=== PATIENT | female | born 1985 | race Caucasian/White ===

== ENCOUNTER 2020-02-16 18:00 | Inpatient (IN) | payer MEDICAID, SELFPAY ==
[2020-02-16] VITALS (14 sets, daily range): BP systolic 0–153; BP diastolic 0–91; PULSE 69–92
[2020-02-16] MEDS: ampicillin 2,000 MG in sodium chloride 0.9% (plus) 50 ML 100 MG IV (19:30)
[2020-02-16] MEDS: dextrose 5%-lactated ringers 1,000 ML 125 ML IV (19:30)
[2020-02-16] MEDS: miSOPROStol 100 mcg tablet 25 MCG VAGINAL (20:06)
[2020-02-17] VITALS (74 sets, daily range): BP systolic 0–168; BP diastolic 0–86; PULSE 60–96; RESP 16–18; TEMP 36.9–37; O2SAT 86–99
[2020-02-17] MEDS: fentaNYL 50 mcg/mL INJ 2mL IVP ×2 (00:06→03:39)
[2020-02-17] MEDS: ampicillin 1,000 MG in sodium chloride 0.9% (plus) 50 ML 100 MG IV ×3 (00:06→07:32)
[2020-02-17 00:07] LABS: Basophils % 0.2 %; Eosinophils # 0.1 10^3/uL (0.0-0.8); Eosinophils % 0.5 %; Hematocrit 29.3 % (37.0-47.0); Hemoglobin 8.8 g/dL (11.5-15.3); Lymphocytes # 2.2 10^3/uL (0.8-4.8); Lymphocytes % 17.9 %; Mean Corpuscular Hemoglobin 23.5 pg (28.0-34.0); Mean Corpuscular Volume 78.3 fL (81-99); Mean Platelet Volume 11.1 fL (7.4-10.4); Monocytes # 0.9 10^3/uL (0.2-0.9); Monocytes % 7.4 %; Neutrophils # 9.12 10^3/uL (1.8-7.7); Neutrophils % 73.5 %; Nucleated Red Blood Cells % 0 %; Platelet Count 322 10^3/cmm (130-400); Red Blood Count 3.74 10^6/uL (4.1-5.3); Red Cell Distribution Width 16.3 % (12.1-15.1); White Blood Count 12.4 10^3/uL (4.0-10.0)
[2020-02-17 00:34] LABS: Amphetamines Screen Urine Negative (Negative); Barbiturates Screen Urine Negative (Negative); Benzodiazepines Screen Urine Negative (Negative); Cocaine Screen Urine Negative (Negative); Opiate Screen Urine Negative (Negative); PCP Screen Urine Negative (Negative); THC Screen Urine Negative (Negative)
[2020-02-17] MEDS: miSOPROStol 100 mcg tablet 25 MCG VAGINAL (01:25)
--- NOTE | 2020-02-17 05:17 | P.ANESASSM_ITS ---
Pre-Anesthetic Assessment Pre-Anesthetic Assessment: Height/Weight: Height 1.57 m Temp Pulse Resp BP 98.6 F 67 18 120/72 02/17/20 02:00 02/17/20 05:12 02/17/20 03:39 02/17/20 05:12 Preop Diagnosis: labor Proposed Procedure: epidural Was Beta Rachel taken within 24 hours: N/A Last Intake: 22:00 Social: Social History: No alcohol and No tobacco Exam: Pre-Anes Outpt Exam: alert, oriented x 3, clear to auscultation bilaterally and regular rate & rhythm Airway: Submandibular: WNL Cervical ROM: WNL MP: 2 Dentition: Full Pulmonary: Pulmonary: None reported CV/HEM: CV/HEM: None reported : : None reported Hepatic: Hepatic: None reported GI: GI: None reported Metabolic: Metabolic: None reported Musc/skel: Musc/skel: None reported Neuropsych: Neuropsych: None reported Anesthetic Plan: ASA status: 2 Anesthesia: Anesthesia Evaluation, Eval. for regional block and Regional (specify below) (epidural) Risk of > 500 ml blood loss (7ml/kg in children): No Meds/Allergies Current Medications: Current Medications Generic Name Dose Route Start Last Admin Trade Name Freq PRN Reason Stop Dose Admin Fentanyl 25 - 100 mcg 02/16/20 18:09 02/17/20 03:39 Sublimaze IVP 50 mcg Q1H PRN Administration SEVERE PAIN Dextrose/Lactated Ringer's 1,000 mls @ 125 m ls/hr 02/16/20 18:09 02/16/20 19:30 Dextrose 5%-Lact ated Ringers IV 125 mls/hr .Q8H PRN Administration per label comment s Ampicillin Sodium 1,000 mg/ 50 mls @ 100 mls/ hr 02/16/20 23:17 02/17/20 03:33 Sodium Chloride IV 100 mls/hr Q4H FABIANA Administration Protocol [facility] Anesthesia Female Reproductive History: : 3 Data Anesthesia CBC & Chem 7: 02/16/20 23:45 Other Labs: Laboratory Results - last 48 hr 02/16/20 02/17/20 23:45 00:20 WBC 12.4 H RBC 3.74 L Hgb 8.8 L Hct 29.3 L MCV 78.3 L MCH 23.5 L MCHC 30.0 RDW 16.3 H Plt Count 322 MPV 11.1 H Neut % (Auto) 73.5 Lymph % (Auto) 17.9 Randall % (Auto) 7.4 Eos % (Auto) 0.5 Baso % (Auto) 0.2 Neut # (Auto) 9.12 H Lymph # (Auto) 2.2 Randall # (Auto) 0.9 Eos # (Auto) 0.1 Baso # (Auto) 0.0 Nucleated RBC % (auto) 0 Nucleated RBCs # 0.0 Urine Opiates Screen Negative Ur Barbiturates Screen Negative Ur Phencyclidine Scrn Negative Ur Amphetamines Screen Negative U Benzodiazepines Scrn Negative Urine Cocaine Screen Negative U Marijuana (THC) Screen Negative Cardiac Studies: No Data to Display
[2020-02-17] MEDS: lactated ringers 1,000 ML 999 ML IV (05:30)
--- NOTE | 2020-02-17 05:53 | ANES.PROC ---
Anesthesia Procedures Procedure/Date: 02/17/20 Epidural: Time Out Performed: Yes Consents Signed: Procedure Consent Consent: requested by attending/covering physician, from patient, risks and benefits reviewed and patient agrees to proceed Lumbar Level: L3-L4 Epidural position: sitting Epidural procedure: sterile prep of area (betadine), 1% lidocaine to numb the area (3ml), 18 g needle, neg for paresthesia, test dose given, 1.5% xylocaine 1:200k epi (5ml), 0.2% Ropivacaine bolus ml (5ml), placed PCEA, no systemic response, sterile dressing applied, L.U.D. no apparent complications and 0.2% Ropiavacaine @ mls/hr (10ml/hr)
[2020-02-17] MEDS: oxytocin 30 UNIT/500 ML BAG 600 UNIT IV (08:57)
--- NOTE | 2020-02-17 09:13 | P.PCNOB_ITS ---
Delivery Note: Date of delivery: February 17, 2020 Delivery: DELIVERY: The patient progressed to complete without difficulty. After delivery of the head, a nuchal cord was noted and reduced. A shoulder dystocia was noted. Cathryn, and suprapubic pressure were attempted. A wood screw maneuver was attempted and failed. I then was able to gain purchase on the posterior shoulder and delivered that first. Together with she delivered a female with a weight of 9 pounds 2 ounces with Apgars of 7, 9. The baby was delivered from the TARYN position. The baby was then completely delivered and placed on the mother's abdomen. The cord was then quickly clamped and cut then passed to the nurses who cared for the baby at the warmer. There was no meconium. The placenta and 3 vessel cord were delivered intact shortly thereafter. The perineum and vaginal vault were carefully examined. No lacerations were noted. Both the mother and the baby were in stable condition. A&P Assessment and plan (1) Vaginal delivery: Anticipate routine care. The patient does have a history of drug abuse though she has been remarkably good during this . I pers onally have no concerns about her ability to be good mother, but we will contact DFS because of her history. As long as they are comfortable with no further evaluation, I am. Status: Acute (2) Shoulder dystocia during labor and delivery: Status: Acute (3) 40 weeks gestation of : Status: Acute Coding Level of Care Code Acute Communications Project Lead for Shreya Patterson Diagnoses Vaginal delivery O80 Shoulder dystocia during labor and delivery O66.0 40 weeks gestation of Z3A.40
[2020-02-17] MEDS: lanolin oint 7 gm 1 APPLIC TOPICAL (10:47)
[2020-02-17] MEDS: benzocaine-menthol 78 gm Canister 1 SPRAY TOPICAL (10:47)
[2020-02-17] MEDS: HYDROcodone-acetaminophen 5-325 mg Tablet PO ×3 (13:02→20:01)
--- NOTE | 2020-02-17 14:58 | PC.NURSE ---
Delivery Note Patient push with one contraction and head delivered at 0852:52. Patient continuing to push well with no descent of body. [facility] maneuver performed with no further descent so suprapubic pressure performed by writer. Mcclelland attempted by physician and it was unsuccessful so posterior shoulder was delivered first by Dr. Miller followed by body of baby at 0854:46. Apgars 7,9. Baby taken to warmer. 6ml of thick fluid deleed by nursery nurse and then baby returned to mom for skin to skin.
--- NOTE | 2020-02-17 16:38 | PC.NURSE ---
Hotline call indicated r/t mother not having custody of her three older children.
[2020-02-17] MEDS: docusate sodium 100 mg Capsule PO (18:08)
[2020-02-17 21:42] LABS: Hematocrit 27.6 % (37.0-47.0); Hemoglobin 8.4 g/dL (11.5-15.3); Mean Corpuscular HGB Conc 30.4 g/dL (30.0-36.0); Mean Corpuscular Volume 78.9 fL (81-99); Mean Platelet Volume 11.4 fL (7.4-10.4); Platelet Count 290 10^3/cmm (130-400); Red Cell Distribution Width 16.3 % (12.1-15.1); White Blood Count 13.7 10^3/uL (4.0-10.0)
[2020-02-18 01:00] VITALS: BP 124/80; PULSE 66; RESP 16; TEMP 36.6; O2SAT 97
[2020-02-18 04:31] VITALS: BP 116/72; PULSE 69; RESP 16; TEMP 37
[2020-02-18 06:00] VITALS: BP 139/76; PULSE 73; RESP 16; TEMP 36.9
[2020-02-18] MEDS: HYDROcodone-acetaminophen 5-325 mg Tablet PO (06:19)
--- NOTE | 2020-02-18 07:45 | PM.OBGYDC ---
Discharge Providers TELEHEALTH COORDINATOR Date of Admission: 02/16/20 18:00 Date of Discharge: 02/18/20 Attending Provider at Admission: Billy Miller MD Attending Provider at Discharge: Billy Miller MD Primary Care Provider: Daysi Anderson MD Diagnoses at Discharge Discharge Diagnosis (1) Vaginal delivery: Status: Acute (2) Shoulder dystocia during labor and delivery: Status: Acute (3) 40 weeks gestation of : Status: Acute Reason for Visit Reason for Visit: IUP INDUCTION OF LABOR Hospital Course Hospital Course: The patient presented to the hospital for induction due to postdates. She is placed on Cytotec 25 mcg x 2. An amniotomy was performed. An epidural was placed. She progressed to complete and had a vaginal delivery remarkable for having shoulder dystocia that was not resolved in 2 minutes. She had no lacerations. Her course was unremarkable. Her bleeding was within normal limits. She breast-fed well. Her pain was well controlled. Information Peripartum Data: Delivery Method: Vaginal Physical Exam Narrative: EXAM NARRATIVE: The patient is alert. She appears comfortable. Her heart has a regular rate and rhythm with no murmurs appreciated. Lungs are clear to auscultation bilaterally. Her fundus is firm and below the umbilicus. Urinary Catheter Management^: Melendrez: Cath Placed During This Visit: yes Urinary Catheter Date of Insertion: 02/17/20 Urinary Catheter Time of Insertion: 06:20 Discharge Data Data Completed and Pending: Labs from last 24 hours 02/17/20 21:30 WBC 13.7 H RBC 3.50 L Hgb 8.4 L Hct 27.6 L MCV 78.9 L MCH 24.0 L MCHC 30.4 RDW 16.3 H Plt Count 290 MPV 11.4 H Vitals: Last Vital Signs Temp 98.4 F 02/18/20 06:00 Pulse 73 02/18/20 06:00 Resp 16 02/18/20 06:00 BP 139/76 02/18/20 06:00 Pulse Ox 97 02/18/20 01:00 Discharge Plan Discharge Patient Disposition: Home Condition: Stable Prescriptions: New ibuprofen 800 mg Tablet 800 mg PO TID Qty: 30 RF: 0 -U 106.5-1 mg Capsule 1 cap PO DAILY Qty: 90 RF: 0 Continued buprenorphine HCl 8 mg tablet, sublingual 16 mg SUBLINGUAL DAILY RF: 0 Discharge Orders: Discharge Order (Routine); Ordered 02/18/20 Ordered By: Billy Miller Referrals: Billy Miller MD [Physician] - 6 Weeks Discharge Diet: Usual diet Discharge Activity: Limit activity as instructed Discharge Attestations TELEHEALTH COORDINATOR Time Spent in Discharge Care*: less than 30 min Coding Level of Care Code Acute Imagery Intelligence for Chg Fwd Diagnoses Vaginal delivery O80 Shoulder dystocia during labor and delivery O66.0 40 weeks gestation of Z3A.40
[2020-02-18] MEDS: prenatal vitamin Capsule 1 CAP PO (08:17)
[2020-02-18] MEDS: docusate sodium 100 mg Capsule PO (08:17)
--- NOTE | 2020-02-18 09:19 | ANE.PACU2 ---
Inpatient post-anesthesia follow up: Airway intact: Yes Vital signs: Temperature 98.4 F Pulse Rate 73 Respiratory Rate 16 Blood Pressure 139/76 Pulse Oximetry 97 Oxygen Delivery Me thod Room Air Oxygen Flow Rate Fraction of Inspir ed Oxygen Hydration adequate: Yes Nausea and vomiting: No Pain level: 2 Mental status: Baseline Additional Comments: up and walking, no signs of infection at epidural site, no headaches
[2020-02-18 10:22] VITALS: BP 143/83; PULSE 80; RESP 16; TEMP 36.7
[2020-02-18 10:59] VITALS: BP 143/83; PULSE 80; RESP 16; TEMP 36.7
== END 2020-02-18 10:55 | disposition home or self-care (01) | DRG 806 ==
PROVIDERS: Admitting Provider Family Medicine; Family Provider Family Medicine; PCP Family Medicine; Visit Provider Family Medicine
DX: O48.0 Post-term pregnancy (principal); O98.42 Viral hepatitis complicating childbirth; Z37.0 Single live birth; O99.324 Drug use complicating childbirth; Z3A.40 40 weeks gestation of pregnancy; O69.2XX0 Labor and delivery complicated by other cord entanglement, with compression, not applicable or unspecified; O66.0 Obstructed labor due to shoulder dystocia; B18.2 Chronic viral hepatitis C; F16.21 Hallucinogen dependence, in remission; Z87.891 Personal history of nicotine dependence
CPT/HCPCS: 12345; 36415; 51702; 59025; 59409; 80306; 85025; 85027; 96374; 96375; 98960; J0290; J2795; J3010

== ENCOUNTER → 2020-07-09 13:52 | Outpatient (BNVA) | payer BC, SELFPAY | PROVIDERS: Family Provider Family Medicine; PCP Family Medicine; Visit Provider Psychiatry & Neurology Psychiatry | DX: F43.12 Post-traumatic stress disorder, chronic (principal); F33.1 Major depressive disorder, recurrent, moderate; F41.1 Generalized anxiety disorder; F11.21 Opioid dependence, in remission; F17.200 Nicotine dependence, unspecified, uncomplicated | CPT/HCPCS: 99204 ==

== ENCOUNTER → 2020-09-01 07:21 | Outpatient (BNVA) | payer BC, SELFPAY | PROVIDERS: Family Provider Family Medicine; PCP Family Medicine; Visit Provider Psychiatry & Neurology Psychiatry | DX: F41.1 Generalized anxiety disorder (principal); F17.200 Nicotine dependence, unspecified, uncomplicated; F43.12 Post-traumatic stress disorder, chronic; F11.21 Opioid dependence, in remission; F33.1 Major depressive disorder, recurrent, moderate | CPT/HCPCS: 99214 ==

== ENCOUNTER → 2020-12-02 15:45 | Outpatient (BNVA) | payer BC, SELFPAY | PROVIDERS: Family Provider Family Medicine; PCP Family Medicine; Visit Provider Internal Medicine | DX: B18.2 Chronic viral hepatitis C (principal); F41.1 Generalized anxiety disorder; F17.200 Nicotine dependence, unspecified, uncomplicated; F11.21 Opioid dependence, in remission | CPT/HCPCS: 80053; 82105; 85025; 87522; 87902 ==

== ENCOUNTER → 2021-06-13 12:45 | Outpatient (BNVA) | payer BC, SELFPAY | PROVIDERS: Family Provider Family Medicine; PCP Family Medicine; Visit Provider Family Medicine | DX: J02.9 Acute pharyngitis, unspecified (principal); R52 Pain, unspecified; H66.003 Acute suppurative otitis media without spontaneous rupture of ear drum, bilateral; J01.00 Acute maxillary sinusitis, unspecified | CPT/HCPCS: 87071; 87400; 87880 ==

== ENCOUNTER 2021-08-31 21:41 | Emergency (ER) | payer BC, MEDICAID, SELFPAY ==
[2021-08-31 21:48] VITALS: BP 125/73; PULSE 90; RESP 16; TEMP 36.8; O2SAT 98; BMI 40.7
--- NOTE | 2021-08-31 22:01 | ED_ITS ---
HPI - Allergic Reaction General: Chief complaint: Allergic Reaction Stated complaint: OD Time Seen by Provider: 08/31/21 22:01 History of Present Illness: HPI narrative: Ms. Brown is a 35-year-old lady with significant past medical history of substance abuse currently on methadone who presents to the emergency department due to medication reaction. Per chart review the patient was seen by PCP today and started on Contrave for weight loss. At that time, per note review it is documented that the patient had stopped methadone however the patient adamantly denies that this is the case. She reports that she is on methadone 90 mg daily and last dose was this morning. She endorses near immediate reaction upon taking her medication. She has shakiness, inability to stay still, cramps, abdominal pain, nausea, vomiting, and generalized malaise. Intensity of symptoms is moderate to severe. Course has persisted. She denies similar episodes in the past. No other specific change in health, exacerbating, relieving factors identified. History is limited by patient's level of discomfort. Onset (ago): hour(s) Severity: severe Review of Systems General: Reports: 10 or more systems reviewed and unremarkable except in HPI and below PFSH ED PFSH: Medical History No significant past medical history Surgical History No significant past surgical history Social History Smoking and tobacco status: current every day smoker (1/2 pack per day) cigarettes Quit status (tobacco): has tried quititng Number of times tried to quit tobacco: 3 Second hand smoke exposure: No Current gender identity: Female Physical Exam Const: COMMON NORMALS: alert GENERAL APPEARANCE: cooperative and in distress HENMT: COMMON NORMALS: normocephalic and atraumatic HEAD & SCALP: normocephalic and atraumatic Eye: COMMON NORMALS: conjunctivae normal CONJUNCTIVA: Yes conjunctivae normal SCLERA: sclerae normal Neck/C-Spine: COMMON NORMALS: supple GENERAL: Yes trachea midline Resp: COMMON NORMALS: normal respiratory effort EFFORT & INSPECTION: Yes able to speak in complete sentences Cardio: COMMON NORMALS: regular rate and regular rhythm RATE: regular rate RHYTHM: regular rhythm GI: PALPATION: No Guarding due to palpation present (GI) Extremity: GENERAL: Yes normal exam except as noted and No edema Neuro: COMMON NORMALS: moves all extremities SENSORIUM/ORIENTATION: Yes alert and No Orientation impaired Psych: ATTITUDE: Yes agitated ACTIVITY/MOTOR BEHAVIOR: Yes hyperactivity MOOD & AFFECT: Yes anxious Course ED course: - Patient was seen and evaluated by me at bedside - Patient placed on cardiac monitors, difficulty obtaining IV access - Initial evaluation notable for no evidence of anaphylaxis, patient symptoms more consistent with acute opiate withdrawal with inability to stay still, piloerection, abdominal distress - Clonidine and benzodiazepine ordered - Prior to reassessment and additional treatment the patient ambulated from the emergency department. She did not notify nursing or physician staff and therefore did not remain for further discussion. - The most likely cause of patient symptoms is acute opioid withdrawal. Note: Click bubbles or prepopulated aldridge in note writing are used for assistance with data collection and billing and are inherently more limited than narrative and other text portions of this note. Please use narrative for additional clinical history and defer to narrative/free test for any case of contradictory information. If information appears in only free text or click bubble it should be considered present or absent as reported. Please contact note bid writer for clarifications of clinical information or contradictory information. MDM is a brief summary, contradictory or erroneous seeming information should be clarified and full note should be reviewed. Vital Signs: Vital signs: Vital Signs Temperature 98.2 F 08/31/21 21:48 Pulse Rate 90 08/31/21 21:48 Respiratory Rate 16 08/31/21 21:48 Blood Pressure 98/69 08/31/21 23:43 Pulse Oximetry 98 08/31/21 21:48 MDM - Allergic Reaction Medical Decision Making 35-year-old lady with history of methadone use presenting to the emerge department after being initiated on naltrexone/bupropion combination pill. Patient history consistent with acute withdrawal likely initiated by this medic ation. Per chart review patient told prescribing physician that she was no longer on methadone however she reports that she did not in fact status. Patient left the emergency department prior to treatment completion. Medical Records I reviewed the patient's medical records. Lab Data I reviewed the patient's lab results. Discharge Plan Discharge Patient Disposition: Left Against Medical Advice Clinical Impression: Acute opioid withdrawal Condition: Stable Prescriptions: No Action triamterene-hydrochlorothiazid 37.5-25 mg tablet 1 tab PO QAM Qty: 30 3RF temazepam [Restoril] 30 mg capsule 30 mg PO .qhs Qty: 30 1RF buspirone 30 mg tablet See Rx Instructions .ROUTE .COMPLEX Qty: 60 2RF Dose Instruction: TAKE 1 TABLET BY MOUTH TWICE A DAY Rx Instructions: TAKE 1 TABLET BY MOUTH TWICE A DAY Contrave 8-90 mg tablet extended release 2 tab PO BID 30 Days Qty: 120 0RF Rx Instructions: 1 po qd week1, 1 po bidweek2, 1po qam 2po qhs week 3, 2 po bid week 4 norgestimate-ethinyl estradiol [Sprintec (28)] 0.25-35 mg-mcg tablet 1 tab PO DAILY Qty: 28 11RF olanzapine 5 mg tablet See Rx Instructions .ROUTE .COMPLEX Qty: 30 0RF Dose Instruction: TAKE 1 TABLET BY MOUTH AT BEDTIME Rx Instructions: TAKE 1 TABLET BY MOUTH AT BEDTIME Referrals: Daysi Anderson MD [Primary Care Provider] - Coding Level of Care Code ED Motion Picture Equipment Machinist for Shreya Patterson
[2021-08-31] MEDS: LORazepam 2 mg/mL INJ 1 mL IM (22:36)
[2021-08-31] MEDS: ondansetron 2 mg/ML SDV 2 mL 4 MG IM (22:36)
[2021-08-31 23:43] VITALS: BP 98/69
== END 2021-08-31 23:45 | disposition left against medical advice (07) ==
PROVIDERS: Emergency Provider Emergency Medicine; PCP Family Medicine
DX: F11.23 Opioid dependence with withdrawal (principal); Z53.21 Procedure and treatment not carried out due to patient leaving prior to being seen by health care provider; F17.210 Nicotine dependence, cigarettes, uncomplicated
CPT/HCPCS: 96372; 99283; J2060; J2405

== ENCOUNTER → 2021-09-30 11:49 | Outpatient (BNVA) | payer BC, MEDICAID, SELFPAY | PROVIDERS: PCP Family Medicine; Visit Provider Family Medicine | DX: R63.5 Abnormal weight gain (principal); F33.1 Major depressive disorder, recurrent, moderate; F41.1 Generalized anxiety disorder; E66.9 Obesity, unspecified; F43.12 Post-traumatic stress disorder, chronic | CPT/HCPCS: 80053; 84443; 85025 ==

== ENCOUNTER → 2021-10-19 10:12 | Outpatient (BNVA) | payer BC, MEDICAID, SELFPAY | PROVIDERS: PCP Family Medicine; Visit Provider Family Medicine | DX: R63.5 Abnormal weight gain (principal); E66.9 Obesity, unspecified; R03.0 Elevated blood-pressure reading, without diagnosis of hypertension; Z82.49 Family history of ischemic heart disease and other diseases of the circulatory system; F33.1 Major depressive disorder, recurrent, moderate | CPT/HCPCS: 80053; 80061 ==

== ENCOUNTER → 2022-07-20 10:08 | Outpatient (BNVA) | payer OTHER, BC, MEDICAID, SELFPAY | PROVIDERS: PCP Family Medicine; Visit Provider Nurse Practitioner Women's Health | DX: N92.6 Irregular menstruation, unspecified (principal); Z12.4 Encounter for screening for malignant neoplasm of cervix; E66.9 Obesity, unspecified | CPT/HCPCS: 84146; 84402; 84439; 84443; 84702; 87624 ==

== ENCOUNTER 2023-05-16 17:38 | Emergency (ER) | payer BC, MEDICAID, SELFPAY ==
[2023-05-16 17:56] VITALS: BP 142/86; PULSE 113; RESP 17; TEMP 36.3; O2SAT 99; BMI 35.4
--- NOTE | 2023-05-16 19:36 | ED_ITS ---
HPI - General Adult General: Chief complaint: General Medical Stated complaint: withdrawls from methadone Time Seen by Provider: 05/16/23 17:44 History of Present Illness: 37-year-old female comes in today for co mplaints of anxiety. Patient believes that she is either withdrawing from her Ativan or her methadone. Patient has a extensive history of anxiety and routinely takes lorazepam 1 mg 3 times a day for her anxiety. Patient reports that she has been unable to go to her primary care due to her insurance being discontinued. Patient is to be seen by her insurance loss control surveyor on Sunday in order to reestablish her insurance. Patient at this time comes into the ER to get assistance for her anxiety until she can follow-up with her primary care on Sunday. Patient appears nontoxic. Patient appears anxious. Patient denies any homicidal or suicidal thoughts. Patient denies any use of street drugs or marijuana. Patient does use nicotine. Associated symptoms: Deny chest pain, dyspnea or headache(s) Review of Systems General: Reports: 10 or more systems reviewed and unremarkable except in HPI and below Card: Denies: chest pain Resp: Denies: dyspnea Musc: Denies: neck pain or back pain Neuro: Denies: headache(s) Psych: Reports: anxiety PFSH ED PFSH: Medical History Family history of heart disease Hep C w/o coma, chronic spontaneously cleared No significant past medical history neghx:Htn,dm,thyroid,dvt/pe PCP: Dr. Anderson Surgical History History of laparoscopy ovarian cyst drainage No significant past surgical history Family History Mother Family history of thyroid problem Thyroid cancer Family/Other Family history of thyroid problem Maternal aunt Thyroid cancer maternal aunt Denies family history of Colon cancer Ovarian cancer Diabetes Heart disease Breast cancer Hypertension Uterine cancer Stroke Hyperchloremia Social History Smoking and tobacco/nicotine status: never used tobacco/nicotine Alcohol intake: current Alcohol intake frequency: holidays/special occasions only Alcohol type: wine Substance/Drug Use: never Physical Exam Const: COMMON NORMALS: alert HENMT: COMMON NORMALS: normocephalic HEAD & SCALP: normocephalic Neck/C-Spine: COMMON NORMALS: full ROM Resp: COMMON NORMALS: normal respiratory effort and clear to auscultation bilaterally AUSCULTATION: clear to auscultation bilaterally Cardio: COMMON NORMALS: regular rate and regular rhythm RATE: regular rate RHYTHM: regular rhythm GI: COMMON NORMALS: non-tender Extremity: COMMON NORMALS: normal to inspection Neuro: SENSORIUM/ORIENTATION: Yes alert Skin: COMMON NORMALS: turgor normal GENERAL SKIN EXAM: turgor normal Course Vital Signs: Vital signs: Vital Signs Temperature 97.3 F L 05/16/23 17:56 Pulse Rate 113 H 05/16/23 17:56 Respiratory Rate 17 05/16/23 17:56 Blood Pressure 142/86 05/16/23 17:56 Pulse Oximetry 99 05/16/23 17:56 Oxygen Delivery Me thod Room Air 05/16/23 17:56 MDM - General Adult Medical Decision Making 37-year-old female comes in today with anxiety. Patient has been without her medications for substance use disorder and anxiety for 2 weeks. Patient appears nontoxic. Patient does appear anxious. Vital signs are normal except for some mild elevation in pulse. Differential diagnosis includes not limited to subst ance use disorder, withdrawal, anxiety. Believe this is not related a physical withdrawal most likely this is anxiety. Patient was given 1 mg of Ativan which she routinely takes for her anxiety. We will also give her a short prescription for her anxiety. Patient reported understanding of care plan and need for follow-up or return to the ER. No radiology studies performed this visit Discharge Plan Discharge Patient Disposition: Home Clinical Impression: Has run out of medications, Anxiety, Substance use disorder Condition: Stable Prescriptions: New lorazepam 1 mg tablet 1 mg PO TID PRN (Reason: anxiety) Qty: 15 0RF No Action (DME) pen needle, diabetic [Easy Comfort Pen [place]] 32 gauge x 5/32 needle See Rx Instructions .Route Qty: 50 0RF Rx Instructions: weekly Ozempic 1 mg/dose (2 mg/1.5 mL) pen injector 1 mg SUBCUT .weekly Qty: 3 3RF olanzapine 5 mg tablet See Rx Instructions .ROUTE .COMPLEX Qty: 30 2RF Dose Instruction: TAKE 1 TABLET BY MOUTH AT BEDTIME Rx Instructions: TAKE 1 TABLET BY MOUTH AT BEDTIME escitalopram oxalate [Lexapro] 10 mg tablet 10 mg PO DAILY Qty: 30 2RF zolpidem [Ambien CR] 12.5 mg tablet,ext release multiphase 12.5 mg PO .qhs 30 Days Qty: 30 2RF triamterene-hydrochlorothiazid 37.5-25 mg tablet See Rx Instructions .ROUTE .COMPLEX Qty: 30 2RF Dose Instruction: TAKE 1 TABLET BY MOUTH ONCE DAILY IN THE MORNING Rx Instructions: TAKE 1 TABLET BY MOUTH ONCE DAILY IN THE MORNING lorazepam 1 mg tablet 1 mg PO TID PRN (Reason: anxiety) Qty: 90 0RF bupropion HCl 150 mg tablet extended release 24 hr See Rx Instructions .ROUTE .COMPLEX Qty: 30 2RF Dose Instruction: TAKE 1 TABLET BY MOUTH IN THE MORNING Rx Instructions: TAKE 1 TABLET BY MOUTH IN THE MORNING Discharge Orders: Discharge ED (Routine); Ordered 05/16/23 Ordered By: Neri Crenshaw Referrals: Daysi Anderson MD [Primary Care Provider] - Discharge Diet: Usual diet Discharge Activity: Increase activity as tolerated Patient Instructions: Anxiety (ED) Activity Restrictions/Additional Instructions: Home and rest. Take medication only as prescribed. Follow-up with primary care or specialist for further prescription refills. Return to ED for new concerns. Coding Level of Care Code ED Admission Nurse for Shreya Patterson
[2023-05-16] MEDS: LORazepam 1 mg Tablet PO (19:41)
== END 2023-05-16 19:45 | disposition home or self-care (01) ==
PROVIDERS: Emergency Provider Nurse Practitioner Family; PCP Family Medicine
DX: F41.9 Anxiety disorder, unspecified (principal); F11.90 Opioid use, unspecified, uncomplicated; Z76.0 Encounter for issue of repeat prescription; Z86.19 Personal history of other infectious and parasitic diseases
CPT/HCPCS: 99283

== ENCOUNTER → 2023-06-14 12:22 | Outpatient (BNVA) | payer BC, MEDICAID, SELFPAY | PROVIDERS: PCP Family Medicine; Visit Provider Nurse Practitioner Family | DX: R30.0 Dysuria (principal) | CPT/HCPCS: 81000 ==

== ENCOUNTER 2023-10-20 17:01 | Inpatient (IN) | payer BC, MEDICAID, SELFPAY ==
[2023-10-20 17:05] VITALS: BP 126/93; PULSE 96; RESP 18; TEMP 36.9; O2SAT 97
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
--- NOTE | 2023-10-20 17:38 | ECG_ITS ---
[facility] Test Date: 2023-10-20 Pat Name: Coreen Nelson Department: Room: Gender: Female [employer] Representative: : 1985 Requested By: Maliha Kelly Order Number: [id number] Alecia MD: Koffi Fairchild M.D. Measurements Intervals [place] Rate: 86 P: 44 MD: 190 QRS: 30 QRSD: 92 T: 46 QT: 390 QTc: 467 Interpretive Statements SINUS RHYTHM No previous ECG available for comparison Electronically Signed On 10-21-2023 12:03:52 CDT by Koffi Fairchild M.D. [id number]
[2023-10-20 18:15] LABS: HCG Qualitative Urine. Negative (Negative)
[2023-10-20 18:17] LABS: Amphetamines Screen Urine Positive (Negative); Barbiturates Screen Urine Negative (Negative); Benzodiazepines Screen Urine Positive (Negative); Cocaine Screen Urine Negative (Negative); Opiate Screen Urine Negative (Negative); PCP Screen Urine Negative (Negative); THC Screen Urine Negative (Negative)
[2023-10-20 18:20] LABS: Add Urine Culture? No; Bacteria Urine 2+ /hpf; Bilirubin Urine Neg (Negative); Blood Urine Neg (Negative); Glucose Urine UA Norm (Normal); Ketones Urine 1+ (Negative); Leukocyte Esterase Urine Trace (Negative); Nitrate Urine Negative (Negative); Protein Urine Neg (Negative); Urine Appearance Clear (CLEAR); Urine Color Yellow (Yellow); Urobilinogen Urine Norm (Negative); pH Urine 5 (5-7)
[2023-10-20 18:31] VITALS: RESP 15
[2023-10-20 18:57] LABS: Basophils % 0.5 %; Eosinophils # 0.5 10^3/uL (0.0-0.8); Eosinophils % 6.4 %; Hematocrit 36.6 % (36-47); Lymphocytes # 2.7 10^3/uL (0.8-4.8); Lymphocytes % 32.6 %; Mean Corpuscular HGB Conc 31.1 g/dL (30-55); Mean Corpuscular Hemoglobin 25.8 pg (27-33); Mean Corpuscular Volume 82.8 fl (85-98); Mean Platelet Volume 9.5 fL (7.4-10.4); Monocytes # 0.8 10^3/uL (0.2-0.9); Monocytes % 9.6 %; Neutrophils # 4.13 10^3/uL (1.8-7.7); Neutrophils % 50.7 %; Nucleated Red Blood Cells % 0 %; Platelet Count 389 10^3/cmm (157-399); Red Blood Count 4.42 10^6/uL (3.85-5.65); Red Cell Distribution Width 14.3 % (12.1-15.1); White Blood Count 8.15 10^3/uL (3.29-11.43)
[2023-10-20 19:25] LABS: Alanine Aminotransferase 11 U/L (0-33); Albumin Level 3.8 g/dL (3.5-5.2); Alkaline Phosphatase 115 U/L (35-105); Anion Gap 12.9 (5-19); Aspartate Amino Transferase 11 U/L (0-32); Blood Urea Nitrogen 9 mg/dL (6-20); Calcium 8.4 mg/dL (8.5-10.5); Carbon Dioxide 30 mmol/L (22-29); Chloride 103 mmol/L (98-107); Creatinine Clr Calc Pharmacy 110.1367; Globulin 3.5 g/dL (1.3-4.6); Glomerular Filtration Rate 80.3 mL/min (90-130); Glucose 90 mg/dL (65-115); Osmolality Calculated 292 mOsm/kg (285-295); Potassium 3.9 mmol/L (3.5-5.1); Sodium 142 mmol/L (136-145); Total Bilirubin 0.2 mg/dL (0.15-1.2); Total Protein 7.3 g/dL (6.6-8.7)
[2023-10-20 19:26] LABS: Thyroid Stimulating Hormone 1.67 uIU/mL (0.27-4.20)
[2023-10-20 19:27] LABS: Acetaminophen < 5.0 ug/mL (10-30); Alcohol Level < 10 mg/dL (0-10); Salicylate < 0.3 mg/dL (3-10)
[2023-10-20 19:36] VITALS: BP 118/85; PULSE 99; RESP 18; TEMP 36.3; O2SAT 96
[2023-10-20] MEDS: cephALEXin 500 mg Capsule PO (19:40)
[2023-10-20 20:15] VITALS: BP 118/85; PULSE 99; RESP 18; TEMP 36.3; O2SAT 96
[2023-10-20] MEDS: hyDROXYzine 25 mg Capsule 50 MG PO (20:45)
[2023-10-20] MEDS: trazodone 50 mg Tablet PO (20:45)
[2023-10-21 06:00] VITALS: BP 102/65; PULSE 87; RESP 15; O2SAT 93
[2023-10-21] MEDS: acetaminophen 325 mg Tablet 650 MG PO ×2 (08:10→18:15)
[2023-10-21] MEDS: escitalopram 10 mg Tablet PO (08:11)
[2023-10-21] MEDS: buPROPion XL (24 HR) 300 mg Tablet PO (08:11)
[2023-10-21] MEDS: hyDROXYzine 25 mg Capsule 50 MG PO (09:14)
--- NOTE | 2023-10-21 12:21 | PC.NURSE ---
Nurses preformed room checks at lunchtime, no contraband was found.
[2023-10-21 14:00] VITALS: BP 128/88; PULSE 88; RESP 16; TEMP 36.3; O2SAT 94
[2023-10-21] MEDS: buprenorphine-naloxone 4-1 mg Film 2 EACH SUBLINGUAL ×2 (14:11→21:55)
[2023-10-21] MEDS: nicotine 21 mg Patch 1 PATCH TRANSDERMA (14:44)
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
[2023-10-21 20:55] VITALS: BP 124/87; PULSE 87; RESP 18; O2SAT 96
[2023-10-21] MEDS: zolpidem 5 mg Tablet PO (21:55)
[2023-10-21] MEDS: OLANZapine 5 mg TABLET PO (21:55)
[2023-10-21] MEDS: LORazepam 1 mg Tablet PO (21:55)
[2023-10-22] MEDS: acetaminophen 325 mg Tablet 650 MG PO ×3 (03:37→17:14)
[2023-10-22 06:00] VITALS: BP 106/71; PULSE 82; RESP 16; O2SAT 92
--- NOTE | 2023-10-22 08:16 | PC.NURSE ---
IN ROOM WALKING AROUND. REPORTS SHE SLEPT GOOD LAST NIGHT. DENIES PAIN. DENIES SI/HI AND AVH AT THIS TIME. RATES ANXIETY /10 AND REQUESTS ANXIETY MEDS, MED NURSE NOTIFIED TO GIVE PRN MEDS. RATES DEPRESSION 01/25. PT STATES GOAL FOR THE DAY IS TO SHOWER, MAKE MY BED AND GET NEW CLOTHES TO WEAR. PT EDUCATED THAT SHE CAN SHOWER AFTER BREAKFAST. ALL QUESTIONS ANSWERED AND SUPPORT VOICED
[2023-10-22] MEDS: sertraline 50 mg Tablet 25 MG PO (09:45)
[2023-10-22] MEDS: hyDROXYzine 25 mg Capsule 50 MG PO (09:46)
[2023-10-22] MEDS: buPROPion XL (24 HR) 150 mg Tablet PO (09:46)
[2023-10-22] MEDS: LORazepam 1 mg Tablet PO ×2 (09:46→15:00)
[2023-10-22] MEDS: buprenorphine-naloxone 4-1 mg Film 2 EACH SUBLINGUAL ×3 (09:46→20:23)
[2023-10-22 14:00] VITALS: BP 100/64; PULSE 98; RESP 18; TEMP 36.6; O2SAT 94
--- NOTE | 2023-10-22 15:49 | P.NPUPN_ITS ---
Subjective NPU 2 Subjective: Patient is a 38-year-old female with a history of depression along with panic attacks with a history of opiate dependence currently on Suboxone. She had complained of having some muscle aches today and had reported that she may have struggled with taking the Suboxone sublingually as she may have possibly swallowed it orally. Patient had reported continued problems with anxiety but reported no panic attacks. She had endorsed some feelings of hopelessness and continued to endorse depression. She had stated that she wished to receive outpatient psychotherapy as well. She reported no worsening mood with the reduction in Wellbutrin to 150 mg daily. She had been able to attend groups. She reported continued struggles with low energy and low motivation. She appeared perplexed when she was informed that she was positive for amphetamine on admission. She reported difficulty with sleep continuity disruption and sleep initiation difficulties last night. Mental Status Exam 2 MSE Comments: Patient is disheveled appearance with poor hygiene and normal gait. She was pleasant and cooperative on interview and appeared in mild distress. There was evidence of mild psychomotor retardation. Her speech was normal in regards to rate rhythm and prosody. Her mood was described as depressed. Her affect was restricted in range and mood congruent. Her thought process was linear logical and goal-directed. Her thought content showed no evidence of active homicidal or suicidal ideation at this time. There was no clear evidence of delusional thinking. She did not appear to be responding to internal stimuli. Her attention span appeared fair. Her insight was poor. Her judgment was poor. Her impulse control appeared limited at this time. Her recent and remote memory appeared grossly intact. She was alert and oriented to person, place, time, and situation. Vitals/I&O/Wt Last Vital Signs Temp 98 F 10/22/23 14:00 Pulse 98 10/22/23 14:00 Resp 18 10/22/23 14:00 BP 100/64 10/22/23 14:00 Pulse Ox 94 10/22/23 14:00 O2 Del Method Room Air 10/22/23 14:00 Weight last 48 hrs Weight 107.501 kg Weight 104.326 kg Data NPU 10/20/23 18:52 10/20/23 18:52 A&P Assessment and plan (1) MDD (major depressive disorder), recurrent severe, without psychosis: (2) Post-traumatic stress disorder, chronic: (3) Generalized anxiety disorder: (4) Opioid use disorder, severe, in early remission, on maintenance therapy: (5) Methamphetamine abuse: Plan Patient is a 38-year-old female reporting worsening depression with a history of opiate dependence, PTSD, major depressive disorder and panic attacks with increase stressor of homelessness contributing to worsening mood at this time. #1.? Engage patient in individual milieu and group therapy. #2?? Recommend sober living treatment at the highest level of care to which the patient is willing to commit #3???Continue suboxone, lorazepam, Continue zyprexa at 5mg po qhs. Plan to titrate zoloft to 50mg daily. #4?? TO-15 minute checks #5?? Will attempt to gather collateral information ? Involuntary Hold Information 2 96 Hour Hold: 96 Hour Involuntary Admission: No Attestations NPU 2 Medical Necessity Statement*: Inpatient hospitalization is medically necessary and deemed to ?be ?the clinically appropriate intervention ?at this time.? We will monitor/initiate medications and make changes as indicated.? The patient will be in the hospital for over 2 midnights.? The patient?s likely length of stay 5-7 days. Coding Level of Care Code Acute Code for g Fwd Diagnoses MDD (major depressive disorder), recurrent severe, without psychosis F33.2 Post-traumatic stress disorder, chronic F43.12 Generalized anxiety disorder F41.1 Opioid use disorder, severe, in early remission, on maintenance therapy F11.21 Methamphetamine abuse F15.10
[2023-10-22 20:04] VITALS: BP 113/76; PULSE 78; RESP 17; O2SAT 97
[2023-10-22] MEDS: OLANZapine 5 mg TABLET PO (20:23)
[2023-10-22] MEDS: zolpidem 5 mg Tablet 10 MG PO (20:23)
[2023-10-22] MEDS: ibuprofen 600 mg Tablet PO (20:27)
[2023-10-23 06:00] VITALS: BP 117/80; PULSE 80; RESP 16; O2SAT 94
[2023-10-23] MEDS: acetaminophen 325 mg Tablet 650 MG PO ×3 (06:19→20:21)
[2023-10-23] MEDS: ibuprofen 600 mg Tablet PO (08:25)
[2023-10-23] MEDS: buprenorphine-naloxone 4-1 mg Film 2 EACH SUBLINGUAL ×3 (08:26→20:01)
[2023-10-23] MEDS: buPROPion XL (24 HR) 150 mg Tablet PO (08:27)
[2023-10-23] MEDS: sertraline 50 mg Tablet 25 MG PO (08:27)
[2023-10-23] MEDS: LORazepam 1 mg Tablet PO (08:30)
--- NOTE | 2023-10-23 13:28 | P.NPUPN_ITS ---
Subjective NPU 2 Subjective: Patient is a 38-year-old female with a history of depression along with panic attacks with a history of opiate dependence currently on Suboxone. The patient reported that she is homeless. She continued to endorse depressed mood but did not report having any muscle aches. Patient had stated that she did not need any substance abuse inpatient treatment. She reported some continued feelings of hopelessness. She was able to attend groups. She states that she will return back to [facility] for substance abuse treatment particularly maintenance treatment for opiate dependence on a daily basis. She reported no suicidal plan but did report having fleeting suicidal thoughts. Patient minimized the presence of amphetamine in urine on admission. Mental Status Exam 2 MSE Comments: Patient is disheveled appearance with poor hygiene and normal gait. She was pleasant and cooperative on interview and appeared in mild distress. There was evidence of mild psychomotor retardation. Her speech was normal in regards to rate, rhythm and prosody. Her mood was described as depressed. Her affect was restricted in range and mood congruent. Her thought process was linear,logical and goal-directed. Her thought content showed no evidence of active homicidal but endorsed fleeting suicidal thoughts. There was no clear evidence of delusional thinking. She did not appear to be responding to internal stimuli. Her attention span appeared fair. Her insight was poor. Her judgment was poor. Her impulse control appeared limited at this time. Her recent and remote memory appeared grossly intact. She was alert and oriented to person, place, time, and situation. Vitals/I&O/Wt Last Vital Signs Temp 98 F 10/22/23 14:00 Pulse 80 10/23/23 06:00 Resp 16 10/23/23 06:00 BP 117/80 10/23/23 06:00 Pulse Ox 94 10/23/23 06:00 O2 Del Method Room Air 10/22/23 14:00 Data NPU 10/20/23 18:52 10/20/23 18:52 A&P Assessment and plan (1) MDD (major depressive disorder), recurrent severe, without psychosis: (2) Post-traumatic stress disorder, chronic: (3) Generalized anxiety disorder: (4) Opioid use disorder, severe, in early remission, on maintenance therapy: (5) Methamphetamine abuse: Plan Patient is a 38-year-old female reporting worsening depression with a history of opiate dependence, PTSD, major depressive disorder and panic attacks with increase stressor of homelessness contributing to worsening mood at this time. #1.? Engage patient in individual milieu and group therapy. #2?? Recommend sober living treatment at the highest level of care to which the patient is willing to commit #3???Continue suboxone,24mg/8mg daily, lorazepam as prescribed, Continue zyprexa at 5mg po qhs, ambien 10mg po qhs, and increase zoloft to 50mg daily. #4?? TO-15 minute checks #5?? Patient refusing inpatient substance abuse treatment. ? Involuntary Hold Information 2 96 Hour Hold: 96 Hour Involuntary Admission: No Attestations NPU 2 Medical Necessity Statement*: Inpatient hospitalization is medically necessary and deemed to ?be ?the clinically appropriate intervention ?at this time.? We will monitor/initiate medications and make changes as indicated.? The patient?s likely length of stay 5-7 days. Coding Level of Care Code Acute Code for Chg Fwd Diagnoses MDD (major depressive disorder), recurrent severe, without psychosis F33.2 Post-traumatic stress disorder, chronic F43.12 Generalized anxiety disorder F41.1 Opioid use disorder, severe, in early remission, on maintenance therapy F11.21 Methamphetamine abuse F15.10
[2023-10-23 14:00] VITALS: BP 107/70; PULSE 75; RESP 20; TEMP 36.6; O2SAT 92
[2023-10-23] MEDS: nicotine 4 mg lozenge MUCOUS MEM (15:09)
[2023-10-23 19:24] VITALS: BP 118/73; PULSE 78; RESP 16; TEMP 36.5; O2SAT 78
[2023-10-23] MEDS: OLANZapine 5 mg TABLET PO (20:01)
[2023-10-23] MEDS: zolpidem 5 mg Tablet 10 MG PO (20:01)
[2023-10-24] MEDS: LORazepam 1 mg Tablet PO ×3 (01:17→14:20)
[2023-10-24] MEDS: acetaminophen 325 mg Tablet 650 MG PO ×3 (01:18→20:01)
[2023-10-24] MEDS: ibuprofen 600 mg Tablet PO (02:23)
[2023-10-24 05:56] VITALS: BP 122/92; PULSE 83; RESP 20; TEMP 36.4; O2SAT 96
[2023-10-24] MEDS: nicotine 21 mg Patch 1 PATCH TRANSDERMA (06:04)
[2023-10-24] MEDS: buprenorphine-naloxone 4-1 mg Film 2 EACH SUBLINGUAL ×3 (08:13→20:01)
[2023-10-24] MEDS: nicotine 4 mg lozenge MUCOUS MEM (08:13)
[2023-10-24] MEDS: sertraline 50 mg Tablet PO (08:14)
[2023-10-24] MEDS: buPROPion XL (24 HR) 150 mg Tablet PO (08:14)
[2023-10-24 14:00] VITALS: BP 100/64; PULSE 91; RESP 20; TEMP 36.6; O2SAT 94
--- NOTE | 2023-10-24 15:45 | P.NPUPN_ITS ---
Subjective NPU 2 Subjective: Patient is a 38-year-old female with a history of depression along with panic attacks with a history of opiate dependence currently on Suboxone. The patient reports no side effects from medication. Patient reports no opioid withdrawal symptoms. Patient had reported adequate sleep. She had reported no side effects from her Lexapro at this time. She reported that she would like to go to a care home but may be unable to because she has some legal charges pending. Patient was able to attend groups. She did not endorse any recent panic symptoms. Mental Status Exam 2 MSE Comments: Patient is disheveled appearance with poor hygiene and normal gait. She was pleasant and cooperative on interview and appeared in mild distress. There was evidence of mild psychomotor retardation. Her speech was normal in regards to rate, rhythm and prosody. Her mood was described as okay. Her affect was restricted in range and mood congruent. Her thought process was linear,logical and goal-directed. Her thought content showed no evidence of active homicidal ideation and denied suicidal thoughts. There was no clear evidence of delusional thinking. She did not appear to be responding to internal stimuli. Her attention span appeared fair. Her insight was improving. Her judgment was poor. Her impulse control appeared limited at this time. Her recent and remote memory appeared grossly intact. She was alert and oriented to person, place, time, and situation. Vitals/I&O/Wt Last Vital Signs Temp 97.9 F 10/24/23 14:00 Pulse 91 10/24/23 14:00 Resp 20 H 10/24/23 14:00 BP 100/64 10/24/23 14:00 Pulse Ox 94 10/24/23 14:00 O2 Del Method Room Air 10/24/23 05:56 Data NPU 10/20/23 18:52 10/20/23 18:52 A&P Assessment and plan (1) MDD (major depressive disorder), recurrent severe, without psychosis: (2) Post-traumatic stress disorder, chronic: (3) Generalized anxiety disorder: (4) Opioid use disorder, severe, in early remission, on maintenance therapy: (5) Methamphetamine abuse: Plan Patient is a 38-year-old female reporting worsening depression with a history of opiate dependence, PTSD, major depressive disorder and panic attacks with increase stressor of homelessness contributing to worsening mood at this time. #1.? Engage patient in individual milieu and group therapy. #2?? Recommend sober living treatment at the highest level of care to which the patient is willing to commit #3???Continue suboxone,24mg/8mg daily, lorazepam as prescribed, Continue zyprexa at 5mg po qhs, ambien 10mg po qhs, and continue zoloft to 50mg daily. #4?? TO-15 minute checks #5?? Patient refusing inpatient substance abuse treatment. [employer] digital [employer] for methamphetamine treatment. ? Involuntary Hold Information 2 96 Hour Hold: 96 Hour Involuntary Admission: No Attestations NPU 2 Medical Necessity Statement*: Inpatient hospitalization is medically necessary and deemed to ?be ?the clinically appropriate intervention ?at this time.? We will monitor/initiate medications and make changes as indicated.? The patient?s likely length of stay 2-3 days. Coding Level of Care Code Acute Code for Chg Fwd Diagnoses MDD (major depressive disorder), recurrent severe, without psychosis F33.2 Post-traumatic stress disorder, chronic F43.12 Generalized anxiety disorder F41.1 Opioid use disorder, severe, in early remission, on maintenance therapy F11.21 Methamphetamine abuse F15.10
[2023-10-24 19:14] VITALS: BP 113/78; PULSE 91; RESP 16; TEMP 36.7; O2SAT 94
[2023-10-24] MEDS: zolpidem 5 mg Tablet 10 MG PO (20:01)
[2023-10-24] MEDS: OLANZapine 5 mg TABLET PO (20:02)
[2023-10-25 06:13] VITALS: BP 105/75; PULSE 80; RESP 14; TEMP 37.2; O2SAT 93
[2023-10-25] MEDS: LORazepam 1 mg Tablet PO ×2 (06:21→13:15)
[2023-10-25] MEDS: acetaminophen 325 mg Tablet 650 MG PO (07:53)
[2023-10-25] MEDS: buprenorphine-naloxone 4-1 mg Film 2 EACH SUBLINGUAL ×3 (07:54→14:31)
[2023-10-25] MEDS: buPROPion XL (24 HR) 150 mg Tablet PO (07:54)
[2023-10-25] MEDS: sertraline 50 mg Tablet PO (07:55)
[2023-10-25] MEDS: nicotine 4 mg lozenge MUCOUS MEM (08:14)
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
--- NOTE | 2023-10-25 14:35 | PC.NURSE ---
Dr. Aguillon ordered for the pt to take 2 doses of Buprenorphine and Naloxone Sublingual Films at the same time before discharge. Administered medications to pt, pt tolerated well.
[2023-10-25 14:44] VITALS: BP 105/75; PULSE 80; RESP 14; TEMP 37.2; O2SAT 93
== END 2023-10-25 14:40 | disposition home or self-care (01) | DRG 885 ==
LOC: ER 18:31 → NP 18:36
PROVIDERS: Admitting Provider Psychiatry & Neurology Psychiatry; Emergency Provider Emergency Medicine; PCP Family Medicine; Visit Provider Psychiatry & Neurology Psychiatry
DX: F33.2 Major depressive disorder, recurrent severe without psychotic features (principal); Z59.00 Homelessness unspecified; F43.12 Post-traumatic stress disorder, chronic; F41.1 Generalized anxiety disorder; F11.91 Opioid use, unspecified, in remission; F15.10 Other stimulant abuse, uncomplicated; Z63.0 Problems in relationship with spouse or partner; Z62.810 Personal history of physical and sexual abuse in childhood
CPT/HCPCS: 80053; 80306; 80307; 81001; 81025; 84443; 85025; 93005; 97150; 97165; 99285; J0573